=== PATIENT | male | born 1950 | race African-American/Black ===

== ENCOUNTER 2017-06-13 15:00 | Emergency (ER) | payer MEDICARE, BC, OTHER ==
[2017-06-13] MEDS ORDERED: ACETAMINOPHEN 325 MG TABLET PO ONE (16:23)
--- NOTE | 2017-06-13 16:24 | ER Document Report ---
HPI - HPI Patient complains to provider of: Low back pain Onset: Other - 2 days ago Onset/Duration: Persistent Quality of pain: Achy Pain Level: 5 Context: Patient states that he was attempting to help his ambulate as she had recently had knee surgery. Patient states that his started to fall causing him to fall. Patient states that he caught himself landing on his left knee. Patient states he felt a pop in his lower back area and since then has had persistent low back pain. Patient denies any radiculopathy or paresthesia. Patient denies any urinary retention or incontinence symptoms. Patient denies any previous history of low back pain. Associated Symptoms: Other - Low back pain Exacerbated by: Movement Relieved by: Denies Similar symptoms previously: No Recently seen / treated by doctor: No - ROS ROS below otherwise negative: Yes Systems Reviewed and Negative: Yes All other systems reviewed and negative - CONSTITUTIONAL Constitutional: DENIES: Fever, Chills - GASTROINTESTINAL Gastrointestinal: DENIES: Nausea - URINARY Urinary: DENIES: Dysuria, Urgency, Frequency - MUSCULOSKELETAL Musculoskeletal: REPORTS: Back Pain. DENIES: Extremity pain - DERM Skin Color: Normal Past Medical History - General Information source: Patient - Social History Smoking Status: Never Smoker Chew tobacco use (# tins/day): No Frequency of alcohol use: None Drug Abuse: None Occupation: retired Lives with: Spouse/Significant other Family History: Reviewed & Not Pertinent Patient has suicidal ideation: No Patient has homicidal ideation: No - Past Medical History Cardiac Medical History: Reports: Hx Hypercholesterolemia, Hx Hypertension Endocrine Medical History: Reports: Hx Diabetes Mellitus Type 2 Renal/ Medical History: Denies: Hx Peritoneal Dialysis Past Surgical History: Reports: Hx Appendectomy Vertical Provider Document - CONSTITUTIONAL Agree With Documented VS: Yes Exam Limitations: No Limitations General Appearance: WD/WN, No Apparent Distress Notes: PHYSICAL EXAMINATION: GENERAL: Well-appearing, obese and in no acute distress. HEAD: Atraumatic, normocephalic. EYES: sclera clear, anicteric, conjunctiva are normal. ENT: nares patent, Moist mucous membranes. NECK: Normal range of motion, supple LUNGS: respirations unlabored HEART: Regular rate and rhythm without murmurs EXTREMITIES: Normal range of motion. Gait normal, pt ambulates without difficulty BACK: Right lower lumbar paraspinal tenderness, no midline tenderness, no deformities or step-offs. No CVA tenderness. NEUROLOGICAL: Cranial nerves grossly intact. Normal speech, normal gait. No saddle anesthesia. PSYCH: Normal mood, normal affect. SKIN: Warm, Dry, normal turgor, no rashes or lesions noted. - RESPIRATORY O2 Sat by Pulse Oximetry: 95 Course - Re-evaluation Re-evalutation: 06/13/17 17:[address] Magana regarding patient's radiology report. Recommends outpatient follow-up with orthopedic spine surgeon - Vital Signs Vital signs: Temp Pulse Resp BP Pulse Ox 97.7 F 88 22 H 134/68 H 95 06/13/17 15:09 06/13/17 15:09 06/13/17 15:09 06/13/17 15:09 06/13/17 15:09 - Diagnostic Test Radiology reviewed: Reports reviewed Discharge - Discharge Clinical Impression: Compression fracture of L1 lumbar vertebra Qualifiers: Encounter type: initial encounter Fracture type: closed Qualified Code(s): S32.010A - Wedge compression fracture of first lumbar vertebra, initial encounter for closed fracture Condition: Stable Disposition: HOME, SELF-CARE Instructions: Compression Fracture of the Spine ([facility]), Ice Packs ([facility]), Oral Narcotic Medication ([facility]) Additional Instructions: Return immediately for any new or worsening symptoms Followup with your primary care provider, call tomorrow to make a followup appointment Follow-up with a spinal surgeon, call tomorrow to make follow-up appointment Prescriptions: Hydrocodone/Acetaminophen [[place] 5-325 Tablet] 1 each PO Q6 PRN #15 tablet PRN Reason: Referrals: LOLLY BURNS MD [Primary Care Provider] - Follow up as needed [facility] [Provider Group] - Follow up as needed DEE DEE MARS MD [ASSOCIATE] - Follow up as needed
--- NOTE | 2017-06-13 17:07 | RADIOLOGY REPORT (SQ) ---
EXAM DESCRIPTION: L SPINE WHOLE COMPLETED DATE/TIME: 06/13/2017 4:52 pm REASON FOR STUDY: fall, low back pain COMPARISON: None. NUMBER OF VIEWS: Five views including obliques. TECHNIQUE: AP, lateral, oblique, and sacral radiographic images acquired of the lumbar spine. LIMITATIONS: None. FINDINGS: MINERALIZATION: Normal. SEGMENTATION: Normal. No transitional anatomy. ALIGNMENT: Normal. VERTEBRAE: Anterior wedge compression fracture of L1 with close to 50% loss of height. May be recent or old. DISCS: Preserved height. No significant osteophytes or end plate irregularity. POSTERIOR ELEMENTS: Pedicles and facets are intact. No pars defect or posterior arch defects. HARDWARE: None in the spine. PARASPINAL SOFT TISSUES: Normal. PELVIS: Intact as visualized. No fractures or worrisome bone lesions. SI joints intact. OTHER: No other significant finding. IMPRESSION: ANTERIOR WEDGE COMPRESSION FRACTURE OF L1. AGE INDETERMINATE, MAY BE RECENT OR OLD. NO OTHER SIGNIFICANT FINDINGS. TECHNICAL DOCUMENTATION: JOB ID: [id number] [employer]- All Rights Reserved
[2017-06-13] MEDS ORDERED: HYDROCODONE/ACETAMINOPHEN 5-325 MG 6 TAB/DSPK PO PRN (17:28)
[2017-06-13 17:59] VITALS: BP 132/84
== END 2017-06-13 17:55 | disposition home or self-care (01) ==
LOC: ER 15:00
DX: S32.010A Wedge compression fracture of first lumbar vertebra, initial encounter for closed fracture (principal); W18.30XA Fall on same level, unspecified, initial encounter; E78.00 Pure hypercholesterolemia, unspecified; I10 Essential (primary) hypertension; E11.9 Type 2 diabetes mellitus without complications
CPT/HCPCS: 99283; 72110; A9270 ×2